=== PATIENT | male | born 1950 | race Caucasian/White ===

== ENCOUNTER → 2017-10-13 | Outpatient (CLI) | payer BC ==
--- NOTE | 2017-10-14 05:39 | PAP/PSG TECHNICIAN REPORT ---
[facility] Saxophone Player Polysomnogram Report Study name: None Report date: 10/14/2017 Study date: 10/13/2017 Referring Physician: DR. HUMA MCKENZIE Name: MARY JO RATLIFF Interpreting Physician: Kris Manjarrez M.D. Date of : 1950 Saxophone Player: Xiomara Sr, PSGT. Sex: Male Age: 67 StudyType: PSG Weight: 190 lbs Height: 67 years, Height 5' 11" Neck Circum:16 inches BMI: 26.5 Medications: Azelex 20 %, Clindamycin 1%, Mirtazapine 30 mg, Nexium 40 mg, Simvastatin. Patient History 67-year-old male in room 7, presents to the sleep lab to see if his oral appliance from Dr. Hdz is working for him. He is told by his that he is snoring, and she has witnessed apnea. He was diagnosed with mild sleep apnea in 2011 with an AHI of 7.4. with Intermittent transient nocturnal hypoxemia. Ess = 0 Neck = 16 inches Parameters Monitored NPSG: E1-M2, E2-M1, Fp1-M2, Fp2-M1, F3-M2, F4-M2, F4-M1, C3-M2, C4-M2, C4-M1, O1-M2, O2-M2, O2-M1, T3-M2, T4-M1, P3-M2, P4-M1, CHIN1, CHIN2, HR, EKG, Legs, PFLOW, SNOR, FLOW, CFLOW, Tidal Volume, THOR, ABDO, SpO2, PLTH, CPRESS, ETCO2 Wave, ETCO2, pH Sleep Architecture Sleep Stages Time at Lights Off 10:00:54 PM STAGES Time (min.) TST (%) Time at Lights On 5:31:24 AM Wake 109.0 -- Total Recording Time (TRT) 451.50 min. N1 55.0 16 Total Sleep Period (TSP) 444.0 min. N2 241.0 71 Total Sleep Time (TST) 341.5min. N3 0.0 0 Awake Time 109.0 min. REM 45.5 13 Wake after Sleep Onset 102.5 min. Sleep Efficiency (SE) 76 % Sleep Onset Latency (RADHA) 6.5 min. Number of Stage 1 Shifts None Awakenings 16 Stage Changes 57 Number of REM periods 3 REM 45.5 13 REM Latency 320.5 min. NREM 296.0 87 Body Position Analysis Supine Right Left Side Prone Vertical Total Sleep Time (min.) 17.8 277.5 44.7 322.25 84.0 0.0 Total Sleep Time (%) 0% 81% 13% 94 5% N/A% Total Sleep Time REM (min.) 0.0 45.5 0.0 None 0.0 0.0 Total Sleep Time NREM (min.) 1.0 232.0 44.7 None 18.3 0.0 Intermittent Wake (min.) 16.8 18.3 8.2 None 65.7 0.0 Total Sleep Period (%) 3% None None None None None Arousals Myoclonus (PLM) * Events Count Index Events Count Index Spontaneous 27 5 Events Awake (PLMW) 4 2.2 Respiratory 1 0.2 Events Asleep w/ Arousal (PLMA) 2 0.4 PLM 2 0 Events Asleep w/o Arousal (PLMS) 123 21.6 Snoring 2 0 Total Asleep 125 22.0 Total 32 6 Total 129 17 Respiratory Analysis * CA OA MA CH H RERA Total Count 0 0 0 0 3 0 3 Index 0.0 0.0 0.0 0 0.5 0 0.5 Mean Duration 0.0 0.0 0.0 0.00 15.9 0.0 15.9 Longest Duration 0.0 0.0 0.0 0.00 0.0 0.0 21.3 Respiratory Event Summary Total Supine ~Supine Right Left Prone REM NREM Apneas Count 0 0 0 0 0 0 0 0 Index 0.0 0 0 0.0 0.0 0 0 0 Hypopneas (4% Desat) Count 3 0 3 2 0 1 0 3 Index 0.5 0.0 1 0.4 0.0 3.3 0.0 0.6 Apneas & All Hypopneas Count 3 0 3 2 0 1 0 3 Index 0.5 0 1 0 0 3 0.0 0.6 Respiratory Events (Senior Manager Mmcoe+All Hyp+RERA) Count 3 0 3 2 0 1 0 3 Index 0.5 0 1 0.4 0.0 3.3 0.0 0.6 Respiratory Related Arousal Count 1 0 1 0 0 1 0 1 Index 0.2 0 0 0 0 3 0 0 Snoring Analysis Supine Right Left Prone REM NREM Total Snore duration 3.4 min Snores count 1 67 21 22 19 92 111 Snore mean duration 1.8 Sec Snores index 60 14 28 72 25.1 18.6 19.5 TST with snoring (%) 1.0% Desaturation Event Summary: Minimum %SpO2 Event Count Mean/Min/Max Duration(sec.) Desaturation Index % Time In Bed > 90 3 44.8 / 38.3 / 49.8 0.4 99.4 86 - 90 0 N/A 0.0 0.6 81 - 85 0 N/A 0.0 0.0 76 - 80 0 N/A 0.0 0.0 71 - 75 0 N/A 0.0 0.0 66 - 70 0 N/A 0.0 0.0 61 - 65 0 N/A 0.0 0.0 56 - 60 0 N/A 0.0 0.0 51 - 55 0 N/A 0.0 0.0 < 50 0 N/A 0.0 0.0 Total REM NREM Awake <50% 0.0 min. 0.0 min. 0.0 min. 0.0 min. 51 - 60% 0.0 min. 0.0 min. 0.0 min. 0.0 min. 61 - 70% 0.0 min. 0.0 min. 0.0 min. 0.0 min. 71 - 80% 0.0 min. 0.0 min. 0.0 min. 0.0 min. 81 - 90% 2.6 min. 0.0 min. 0.0 min. 2.6 min. 91 - 100% 446.4 min. 44.7 min. 295.6 min. 106.1 min. Average 93 93 93 93 Minimum SpO2 88 90 91 88 Desaturation Event Index 0.4 0.0 0.6 0.0 # Desat. Events below 89% N/A N/A N/A N/A Time(%) with Saturation below 89% 0.0 0.0 0.0 0.0 Time(min.) with Saturation below 89% 0.1 0.0 0.0 0.1 Time (mins) REM (mins) NREM (mins) % of TST SpO2 Below 90% N/A N/A NN/A 0.0 SpO2 Below 88% 0 0 0 0 Heart Rate Analysis Min (bpm) Max (bpm) Average (bpm) Awake 39 84 55 NREM 45 70 50 REM 43 69 52 Overall 43 70 50 Supplemental O2 Values Minimum O2 level: None Value Start Time End Time Saxophone Player Comments . PSG Study slept in the right, left, and supine and prone positions. No cardiac arrhythmia or PLM's noted. No bruxism noted. Snoring was noted and scored as a 2 on a scale of 1 through 5. (0=no snoring, 5=snoring loud enough to be heard through a closed door or down the [address] way) awoke to use the restroom zero times during the night. Mr. Ratliff stated,I did not sleep as well as I do when I am in my own bed. The final report will be interpreted and signed by a sleep physician. The completed physician report will then be placed in the patient medical record Therapy (cm H2O) 0 TIB (min.) 450.5 TST (min.) 341.5 Sleep Onset (min.) 6.5 REM Onset From Sleep (min.) 320.5 Sleep Efficiency % 76 Wakefulness (%) 24 Wakefulness (min.) 109.0 NREM 1 (%) 16 NREM 1 (min.) 55.0 NREM 2 (%) 71 NREM 2 (min.) 241.0 NREM 3 (%) 0 NREM 3 (min.) 0.0 REM (%) 13 REM (min.) 45.5 # Arousals 32 Arousal Index 6 # Snore 111 Snore Index 19.5 AHI 0.5 AHI Supine 0 AHI Non-Supine 1 NREM AHI 0.6 REM AHI 0.0 RDI 0.5 # Obstructive Apnea 0 # Central Apnea 0 # Mixed Apnea 0 # Hypopneas 3 RERAs 0 Total Respiratory Events 4 Time Below SpO2 89% (min.) 0.0 Mean NREM SpO2 (%) 93 Mean REM SpO2 (%) 93 Mean Sleep SpO2 (%) 93 Min NREM SpO2 (%) 91 Min REM SpO2 (%) 90 Position Supine (min.) 17.8 Position Non-supine (min.) 340.5 LM Index Sleep 22.0 LM Index NREM 24.5 LM Index REM 5.3 Mean Heart Rate (bpm) 50 Min Heart Rate (bpm) 43
--- NOTE | 2017-10-15 09:44 | POLYSOMNOGRAPH REPORT ---
CLINICAL DATA: A 67-year-old male with BMI of 26.5, referred by Dr. Triplett, Dr. Hdz and Annie Hunt PA-C. The patient has sleep apnea and has an oral appliance. He had mild sleep apnea on his initial PSG. He is here to determine the effectiveness of his oral appliance. He has been told by his that he has snoring and apneic episodes. SLEEP ARCHITECTURE: Total sleep period was 444 minutes. Total sleep time was 341.5 minutes divided between 296 minutes of non-REM sleep and 45.5 minutes of REM sleep. Sleep latency was 6.5 minutes. REM latency was delayed at 320.5 minutes. Sleep efficiency was 76%. Wake after sleep onset was 102.5 minutes. Sleep consisted of stage N1 16%, stage N2 71% and REM 13%. AROUSAL DATA: 32 arousals were recorded for an index of 6 per hour. 27 were spontaneous. PERIODIC LIMB MOVEMENT DATA: Mildly elevated limb movements during sleep were noted. There were 125 limb movements during sleep noted for an index of 22 per hour with arousal index of 0.4 per hour. RESPIRATORY DATA: There was no evidence of clinically significant sleep apnea seen. The AHI was 0.5. There were 3 hypopneic episodes. The mean duration of hypopnea was 16 seconds. OXIMETRY DATA: No hypoxemia was seen. Oxygen josiah was 91%. Mean saturation 93%. EKG: Heart rates ranged from 45-70 beats per minute. No arrhythmias were noted. REGIONAL COMMERCIAL SALES MANAGER'S COMMENTS: The patient slept in the right, left and supine positions. Snoring was mild, rated 2 on a scale of 1 through 5. The patient did use his oral appliance during this study. IMPRESSION: No evidence of clinically significant sleep apnea/hypopnea or nocturnal hypoxemia. The patient does appear to be adequately treated with his oral appliance with an AHI of 0.5 and no hypoxemia. RECOMMENDATIONS: The patient should continue to use his oral appliance. [facility]
== END | disposition home or self-care (01) ==
LOC: C.NEUR 21:00
PROVIDERS: ATTEND Family Medicine
DX: G47.30 Sleep apnea, unspecified (principal)

== ENCOUNTER 2024-10-17 21:01 | Observation (INO) ==
--- NOTE | 2024-10-17 21:27 | Emergency Department Note ---
Impression & Plan CONOR (acute kidney injury), Gastroenteritis due to norovirus, Acute dehydration, Vomiting and diarrhea ED Provider Note HISTORY OF PRESENT ILLNESS: Patient is a 74-year-old male presenting with diarrhea and vomiting. Patient was just discharged by myself in the emergency department after being diagnosed with norovirus. Patient wanted to try to go home and had tolerated oral intake in the emergency department, but when getting out to his car he had an episode of vomiting. ROS: as above PHYSICAL EXAM: Constitutional: Patient appears in no acute distress. HENT: Head: Normocephalic and atraumatic. Eyes: EOMI, PERRL Mouth/Throat: Mucous membranes moist. Neck: Trachea midline. Neck supple. Cardiovascular: Tachycardic with regular rhythm. No murmurs, rubs or gallops. Intact distal pulses. Pulmonary/Chest: No respiratory distress. Breath sounds clear and equal bilaterally. No wheezes or rales. Abdominal: Abdomen soft, no tenderness, rebound or guarding. Musculoskeletal: No edema, tenderness or deformity noted. Skin: Warm and dry. No rash, erythema, pallor or cyanosis Psychiatric: Appropriate mood and affect for situation. Neurological: Alert and keenly responsive. CN II-XII grossly intact, moving all extremities equally and fully. MDM: - Vitals signs showed tachycardia - History obtained via patient. History as above. - Chronic conditions affecting care: vasovagal syndrome - Differential diagnoses include, but are not limited to: Viral syndrome; electrolyte abnormality; diverticulitis; colitis; appendicitis - Order placed for continuous cardiac monitoring. At this time, monitor showed rate of 105 bpm with normal sinus rhythm, per my interpretation. - External medical records reviewed. - Patient is workup from earlier today was reviewed by myself. Please see previous note. He did have an CONOR and admission was offered to the patient, but he tolerated oral intake and wanted to try to go home. He was having no vomiting symptoms so antiemetics are not prescribed to him. However, he went out to the parking lot and had episode of vomiting. He came back for admission for hydration in the setting of gastroenteritis with norovirus. - Discussion was had with sample case porter about patient's case and need for admission - Hospitalist consulted for admission - Patient admitted to [facility] Hospitalist service for further evaluation and management. ASSESSMENT AND PLAN: Diagnosis: CONOR; acute dehydration; vomiting and diarrhea; gastroenteritis due to norovirus Plan: Admit Past Med/Surg History Problem List (Updated 10/17/24 @ 22:39 by Lisa Lozoya PA-C) Renal insufficiency Vomiting and diarrhea (Acute) Acute dehydration (Acute) Gastroenteritis due to norovirus (Acute) CONOR (acute kidney injury) (Acute) CONOR (acute kidney injury) (Acute) Gastroenteritis due to norovirus (Acute) Diarrhea (Acute) Medical History (Updated 10/17/24 @ 22:39 by Lisa Lozoya PA-C) Pre-diabetes Vasovagal syncope Family History (Updated 07/15/18 @ 12:33 by Laura Turpin) Father Pacemaker Social History Smoking Status: Never smoker Preferred Language: Jordanian Feels Safe at Home: Yes Allergies Allergies Allergy/AdvReac Type Severity Reaction Status Date / Time Sulfa (Sulfonamide Allergy Mild Unknown Verified 10/17/24 21:38 Antibiotics) Home Meds Home Medications Medication Instructions Recorded Confirmed atorvastatin 10 mg tablet (Lipitor) 10 mg PO HS 07/15/18 10/17/24 azelaic acid 20 % topical cream 1 applic topical BID 07/15/18 10/17/24 clindamycin phosphate 1 % topical 1 applic topical DAILY 07/15/18 10/17/24 solution coenzyme Q10 100 mg capsule 200 mg PO DAILY 07/15/18 10/17/24 (CoQ-10) esomeprazole magnesium 40 mg 40 mg PO QAM 07/15/18 10/17/24 capsule,delayed release (Nexium) mirtazapine 30 mg tablet 30 mg PO HS 07/15/18 10/17/24 multivitamin 1 tab PO DAILY 07/15/18 10/17/24 omega 1-fmt-ukn-fish oil 1,000 mg 1 cap PO BID 07/15/18 10/17/24 (120 mg-180 mg) capsule (Fish Oil) carboxymethyl 0.5 %-glycerin 1 1 drp OPB BID 10/17/24 10/17/24 %-polysorb 80 0.5 %-PF eye dropperette (Refresh Optive Lazaro-3 (PF)) meloxicam 15 mg tablet 15 mg PO QAM PRN Pain 10/17/24 10/17/24 turmeric 400 mg capsule 400 mg PO DAILY 10/17/24 10/17/24 Results & Data (ED) Vital Signs Vital Signs - 24 hr 03/25/25 21:05 Temperature 36.9 C Temperature Source Temporal Artery Scan Pulse Rate 107 H Pulse Rhythm Regular Pulse Strength Normal Respiratory Rate 18 Respiratory Effort / Characteristics Non-Labored Spontaneous Respiratory Depth Normal Respiratory Pattern Regular Blood Pressure 118/82 Blood Pressure Mean 94 Blood Pressure Position Sitting Pulse Oximetry 99 Oxygen Delivery Method Room Air Sepsis Recent Fever Within 48 Hours No Sepsis New/Unexplained Change in Mental Status N/A Sepsis Action Taken by Nursing No Action Required Administered Medications Discontinued Medications Sodium Chloride (Nss) 1,000 mls @ 999 mls/hr IV .Q1H1M ONE Stop: 10/17/24 22:24 Last Infusion: 10/17/24 22:38 Dose: Infused Documented By: Admin: 10/17/24 21:34 Dose: 999 mls/hr Documented By: DAKOTA Discharge Plan Visit Data Chief Complaint: Vomiting Stated Complaint: N/V/D ED Provider: Chary Arce Discharge Problem: CONOR (acute kidney injury), Gastroenteritis due to norovirus, Acute dehydration, Vomiting and diarrhea Forms Stand Alone Forms: [facility] Prescriptions Prescriptions: No Action multivitamin Tablet 1 tab PO DAILY atorvastatin [Lipitor] 10 mg Tablet 10 mg PO HS azelaic acid 20 % Cream 1 applic TOPICAL BID mirtazapine 30 mg Tablet 30 mg PO HS esomeprazole magnesium [Nexium] 40 mg Capsule,Delayed Release(Dr/Ec) 40 mg PO QAM clindamycin phosphate 1 % Solution 1 applic TOPICAL DAILY coenzyme Q10 [CoQ-10] 100 mg Capsule 200 mg PO DAILY omega 6-zag-jps-fish oil [Fish Oil] 1,000 mg (120 mg-180 mg) Capsule 1 cap PO BID meloxicam 15 mg tablet 15 mg PO QAM PRN (Reason: Pain) Refresh Optive Lazaro-3 (PF) 0.5-1-0.5 % Dropperette 1 drp OPB BID turmeric 400 mg Capsule 400 mg PO DAILY Referrals Referrals: Bola Triplett [Primary Care Provider] -
[2024-10-17] MEDS: SODIUM CHLORIDE 0.9% 1,000 ML IV ONE (21:34)
--- NOTE | 2024-10-17 22:04 | History & Physical Report ---
Date of Service October 17, 2024 Assessment & Plan (1) Gastroenteritis due to norovirus: (2) Acute dehydration: (3) Renal insufficiency: Plan Patient is a 74-year-old male with past medical history of sergei and depression. He presented to ED 10/17 due to abdominal pain and diarrhea and was found to have norovirus. Patient was discharged home on had an episode of vomiting in the parking lot so he returned for admission for IV fluids. Patient was also found to have mild renal insufficiency with creatinine increased from 1.33 to 1.72. #norovirus stool culture positive for norovirus in ED 10/[address] showed enteritis electrolytes stable, mild renal insufficiency as below No leukocytosis 1L NSS in ED, LR at 80 mL/hour x 1 bag overnight Zofran as needed for nausea; patient would like Zofran p.o. on discharge clear liquids, advance diet as tolerated to low fiber IV Tylenol as needed for abdominal pain hold all nonessential p.o. medications #Renal insufficiency/dehydration creatinine increased from 1.33 to 1.72 Suspect 2/2/dehydration with above possible component of CKD as UA showed 1+ protein, >20 hyaline cast - most recent BMP from 2018 electrolytes stable/mild hyponatremia - mag 1.9, K+ 4.0, Na 134 IV fluids as above BMP and mag in a.m. Chronic stable diagnoses: depression - continue mirtazapine HLD - hold atorvastatin until able to tolerate po intake SERGEI - control with dental appliance at home, no cpap/bipap VTE ppx: SCDs, low risk and obs status Diet: clears, advance as tolerated low fiber diet Dispo: med surg anticipate discharge home 10/18 after able to tolerate p.o. intake if renal function improved. Zofran p.o. on discharge. Admission and Anticipated Discharge Date Admission Date: 10/17/24 History of Present Illness Chief Complaint: vomiting Primary Care Provider: Bola Triplett Patient is a 74-year-old male with past medical history of SERGEI and depression. He presented to ED 10/17 due to abdominal pain and diarrhea and was found to have norovirus. Patient was discharged home on had an episode of vomiting in the parking lot so he returned for admission for IV fluids. Patient was also found to have mild renal insufficiency with creatinine increased from 1.33 to 1.72. Patient seen at bedside with his present. He was concerned about being at home after returning to the ED with nausea, vomiting, and diarrhea. He has not had an episode of vomiting since arrival to the ED. He feels dehydrated and with CONOR is requiring IV fluids. He did have episodes of dizziness earlier today at home in which she had to keep laying down on the bathroom floor. He denies current dizziness. His abdominal pain is improving. He has drank Pedialyte and water today but both came out about an hour later through his stool. He denies any sick contacts, is unsure of where he picked this up. He denies any hematemesis or bright red blood in stool. He denies any chest pain or shortness of breath. He would like to still take his mirtazapine tonight but is okay with holding all other p.o. medications. Will trial clear liquids and advance diet as tolerated. He wishes to be full code. Allergies Allergy/AdvReac Type Severity Reaction Status Date / Time Sulfa (Sulfonamide Allergy Mild Unknown Verified 10/17/24 21:38 Antibiotics) Home Medications Medication Instructions Recorded Confirmed Type atorvastatin 10 mg tablet (Lipitor) 10 mg PO HS 07/15/18 10/17/24 History azelaic acid 20 % topical cream 1 applic topical BID 07/15/18 10/17/24 History clindamycin phosphate 1 % topical 1 applic topical DAILY 07/15/18 10/17/24 History solution coenzyme Q10 100 mg capsule 200 mg PO DAILY 07/15/18 10/17/24 History (CoQ-10) esomeprazole magnesium 40 mg 40 mg PO QAM 07/15/18 10/17/24 History capsule,delayed release (Nexium) mirtazapine 30 mg tablet 30 mg PO HS 07/15/18 10/17/24 History multivitamin 1 tab PO DAILY 07/15/18 10/17/24 History omega 1-naj-nbt-fish oil 1,000 mg 1 cap PO BID 07/15/18 10/17/24 History (120 mg-180 mg) capsule (Fish Oil) carboxymethyl 0.5 %-glycerin 1 1 drp OPB BID 10/17/24 10/17/24 History %-polysorb 80 0.5 %-PF eye dropperette (Refresh Optive Lazaro-3 (PF)) meloxicam 15 mg tablet 15 mg PO QAM PRN Pain 10/17/24 10/17/24 History turmeric 400 mg capsule 400 mg PO DAILY 10/17/24 10/17/24 History ondansetron 4 mg disintegrating 4 mg PO Q6H PRN nausea and 10/18/24 Rx tablet vomiting #10 tabs Past Med/Surg History Problem List (Updated 10/17/24 @ 22:39 by Lisa Lozoya PA-C) Renal insufficiency Vomiting and diarrhea (Acute) Acute dehydration (Acute) Gastroenteritis due to norovirus (Acute) CONOR (acute kidney injury) (Acute) CONOR (acute kidney injury) (Acute) Gastroenteritis due to norovirus (Acute) Diarrhea (Acute) Medical History (Updated 10/17/24 @ 22:39 by Lisa Lozoya PA-C) Pre-diabetes Vasovagal syncope Family History (Updated 07/15/18 @ 12:33 by Laura Turpin) Father Pacemaker Social History Smoking Status: Never smoker Hx Alcohol Use: No Hx Substance Use: No Preferred Language: Georgian Communication Ability: Effective Surgical Supplies Sterilizer Required: No Beliefs That Will Affect Care: None Current Living Situation: Spouse Feels Safe at Home: Yes Safety Concerns: Feels Safe At This Time Assistive Devices: None Review of Systems Review of Systems: see HPI Physical Exam Physical Exam: The patient is awake, alert and oriented 3, well developed and well nourished, normocephalic and atraumatic, in no acute distress. Non-toxic appearing. HEENT- EOMI, mucous membranes dry. Hearing grossly intact. Heart-normal S1 and S2. No murmurs, rubs or gallops. Lungs-clear bilaterally, no respiratory distress, no accessory muscle use. Abdomen-normal bowel sounds and soft. No ascites noted. Non-tender. Extremities- no clubbing, cyanosis, or edema. Rheumatologic-normal range of motion. Psychiatric-normal affect. Results & Data Results & Data Vital Signs (Past 12 Hours) Vital Signs Temp Pulse Resp BP Pulse Ox O2 Del Method 10/17/24 21:05 36.9 C 107 H 18 118/82 99 Room Air Laboratory Results Reviewed CBC, CMP, magnesium, UA, stool BioFire, respiratory bio fire Diagnostic Findings reviewed AP CT Medications Administered ED1L NSS bolus AdmissionLR at 80 mL/hour ECG Additional Comments: NSR rate 79 QTc 428 Code Status & VTE Plan Code Status full VTE Prophylaxis Plan VTE Prophylaxis will be ordered: Yes Supervising Physician Co-Signing Physician Notes Attending addendum: I have physically seen this patient, have supervised the ANNALEE's activities, and agree with the H&P unless as otherwise noted. Assessment and Plan: The patient is a 74-year-old male with a past medical history including atorvastatin, hyperlipidemia, and depression. He presents to the emergency department with 2 to abdominal pain and diarrhea, with stool PCR positive for norovirus, and BioFire respiratory test negative. He is referred for evaluation for admission and treatment to the hospitalist service for acute kidney injury superimposed on CKD, secondary to enteritis due to norovirus. #Enteritis secondary to norovirus- CT with enteritis, no sign of bowel obstruction Zofran 4 mg IV every 6 hours as needed Clear liquids, advance diet as tolerated Acetaminophen 1 g IV every 8 hours as needed for mild pain or fever Contact precautions Acute kidney injury superimposed on CKD- Creatinine 1.72, with base 1.33 Secondary to dehydration associated with norovirus infection Repeat laboratories in a.m. Chronic stable medical conditions: Depression-continue mirtazapine Hyperlipidemia temporarily hold atorvastatin SERGEI-continue dental appliance has not found Remaining orders and notations as noted PG Care Time/CCT Total # of Minutes Spent Total Time Spent with Patient: Total time spent is greater than 50% in coordination of care (as documented) at patient's floor/unit and/or counseling patient: Coding Level of Care Code 76354 INT INP/OBS CARE 3/75MIN Diagnoses Gastroenteritis due to norovirus A08.11 Acute dehydration E86.0 Renal insufficiency N28.9
[2024-10-17] MEDS: LACTATED RINGER'S 1,000 ML IV SCH (22:54)
[2024-10-18] MEDS ORDERED: ACETAMINOPHEN 1,000 MG/100 ML VIAL IV PRN (01:05)
[2024-10-18] MEDS: MIRTAZAPINE TAB 15 MG TAB PO SCH (01:59)
[2024-10-18 07:06] VITALS: BP 123/68; PULSE 61; RESP 16; TEMP 99; O2SAT 97
[2024-10-18 10:03] LABS: Calcium 8.2 mg/dl (8.6-10.3); Magnesium 1.9 mg/dl (1.7-2.4); Potassium 3.6 mmol/L (3.5-5.1)
[2024-10-18 10:09] LABS: BUN Creatinine Ratio 19.2 (10-20); Creatinine Clr Calc Pharmacy 53.5 ml/min
--- NOTE | 2024-10-18 11:33 | Discharge Summary ---
Discharge Summary Date of Service October 18, 2024 Principal Dx & Hospital Course #1 = Principal Diagnosis (1) Gastroenteritis due to norovirus: (2) Acute dehydration: (3) Renal insufficiency: (4) CONOR (acute kidney injury): Plan #Norovirus/CONOR Patient is a 74-year-old male with past medical history of SERGEI and depression. He presented to ED 10/17 due to abdominal pain and diarrhea and was found to have norovirus. Patient was discharged home on had an episode of vomiting in the parking lot so he returned for admission for IV fluids. Patient was also found to have mild renal insufficiency with creatinine increased from 1.[address] A/P showed enteritis. Stools have slowed and started to form, tolerating PO intake. Received IVFs and Cr and returned back to normal. Discharge to home with and prn zofran rx. No changes to home medications. Admission HPI Per Admitting Provider Patient is a 74-year-old male with past medical history of SERGEI and depression. He presented to ED 10/17 due to abdominal pain and diarrhea and was found to have norovirus. Patient was discharged home on had an episode of vomiting in the parking lot so he returned for admission for IV fluids. Patient was also found to have mild renal insufficiency with creatinine increased from 1.33 to 1.72. Patient seen at bedside with his present. He was concerned about being at home after returning to the ED with nausea, vomiting, and diarrhea. He has not had an episode of vomiting since arrival to the ED. He feels dehydrated and wi th CONOR is requiring IV fluids. He did have episodes of dizziness earlier today at home in which she had to keep laying down on the bathroom floor. He denies current dizziness. His abdominal pain is improving. He has drank Pedialyte and water today but both came out about an hour later through his stool. He denies any sick contacts, is unsure of where he picked this up. He denies any hemateme sis or bright red blood in stool. He denies any chest pain or shortness of breath. He would like to still take his mirtazapine tonight but is okay with holding all other p.o. medications. Will trial clear liquids and advance diet as tolerated. He wishes to be full code. Discharge Exam General: NAD, VS as above, ambulating independently in the room, appears well Resp: normal respiratory effort, lungs clear to auscultation CV: RRR, no murmur, Abd: normal bowel sounds, non tender, soft Extremities: Moves all extremities, no edema Neuro: A&O x3, Discharge Plan Discharge Items Patient Disposition: Home - Self-Care Reason For Visit: NOROVIRUS, RENAL INSUFFICIENCY Discharge Diagnosis: Norovirus Activity: Resume your previous activity Weightbearing: Full weightbearing Non-emergency contact: Primary Care Provider Call non-emergency contact if: you have any medication questions, your symptoms worsen, your pain is concerning for you and your temperature is above 101 Follow-up/Referrals: Bola Triplett [Primary Care Provider] - 10/24/24 11:20 am (Please arrive 15 mins early for appointment) Diet: Regular Addtl Attending Provider Instructions: Mr. Ratliff, You were hospitalized after having nausea, diarrhea, and abdominal pain associated with norovirus. Thankfully, you have improved with IV fluids and Zofran. There was also concerns about elevations to your kidney function. This was likely secondary to the diarrhea, the repeat labs this morning showed that your kidney function is back to normal. Continue bland diet at home until your stools return to normal. Make sure you are staying hydrated at home. Electrolyte drinks like gatorade and powerade can be helpful. I called [facility] and they did not have a prescription for zofran so I have sent that in for you. Take as needed for nausea and vomititng. No changes yo your home medications. Activity: You can do normal everyday activities as your body allows. Take rest breaks if you feel tired. Do not overexert. Stop activity if you have pain, shortness of breath or feel dizzy. Follow-up appointments: Make an appointment with your primary care physician within one week of discharge. A copy of this summary will be sent to them. Every time you see your primary care physician, or any other doctor, bring your medication list, and a list of questions. CONTACT YOUR PRIMARY CARE PROVIDER if you experience any of the following: Shortness of breath or difficulty breathing Fevers or chills Feeling tired with normal activity or experiencing dizziness or fainting Difficulty following your treatment plan, or difficulty taking medications CALL 911 OR GO TO THE EMERGENCY DEPARTMENT if you experience any of the following: Severe abdominal pain or nausea/vomiting Severe chest pain, or chest pain that radiates (moves) to your jaw or arm Sudden, severe shortness of breath or difficulty breathing Thank you for allowing us to participate in your care. Pending Studies at Discharge: No Stand-Alone Forms: My [facility], Smoking Cessation Medications and DC Order Prescriptions: New ondansetron 4 mg tablet,disintegrating 4 mg PO Q6H PRN (Reason: nausea and vomiting) Qty: 10 0RF Continued multivitamin Tablet 1 tab PO DAILY atorvastatin [Lipitor] 10 mg Tablet 10 mg PO HS azelaic acid 20 % Cream 1 applic TOPICAL BID mirtazapine 30 mg Tablet 30 mg PO HS esomeprazole magnesium [Nexium] 40 mg Capsule,Delayed Release(Dr/Ec) 40 mg PO QAM clindamycin phosphate 1 % Solution 1 applic TOPICAL DAILY coenzyme Q10 [CoQ-10] 100 mg Capsule 200 mg PO DAILY omega 3-qhj-fvt-fish oil [Fish Oil] 1,000 mg (120 mg-180 mg) Capsule 1 cap PO BID meloxicam 15 mg tablet 15 mg PO QAM PRN (Reason: Pain) Refresh Optive Lazaro-3 (PF) 0.5-1-0.5 % Dropperette 1 drp OPB BID turmeric 400 mg Capsule 400 mg PO DAILY Discharge Orders: Discharge Order (Routine); Ordered 10/18/24 Ordered By: Migdalia Pittman/Other Patient Handouts: Understanding Norovirus Admission Data Admit Date/Time: 10/17/24 22:29 Attending Provider: Aron Cartagena Admit Provider: Bubba Amin Primary Care Provider: Bola Triplett Other Providers: Bubba Amin Other Interventions: Discharge Summary Assessment (RN) Last Done: 10/18/24 11:50 Hospital Stay Data Consultations 10/17/24 21:29 ED Decision to Admit Stat Pending Results Patient Have Any Pending Studies at Discharge: No Discharge Instructions Given to Patient (Per Discharging Provider) Mr. Ratliff, You were hospitalized after having nausea, diarrhea, and abdominal pain associated with norovirus. Thankfully, you have improved with IV fluids and Zofran. There was also concerns about elevations to your kidney function. This was likely secondary to the diarrhea, the repeat labs this morning showed that your kidney function is back to normal. Continue bland diet at home until your stools return to normal. Make sure you are staying hydrated at home. Electrolyte drinks like gatorade and powerade can be helpful. I called [facility] and they did not have a prescription for zofran so I have sent that in for you. Take as needed for nausea and vomititng. No changes yo your home medications. Activity: You can do normal everyday activities as your body allows. Take rest breaks if you feel tired. Do not overexert. Stop activity if you have pain, shortness of breath or feel dizzy. Follow-up appointments: Make an appointment with your primary care physician within one week of discharge. A copy of this summary will be sent to them. Every time you see your primary care physician, or any other doctor, bring your medication list, and a list of questions. CONTACT YOUR PRIMARY CARE PROVIDER if you experience any of the following: Shortness of breath or difficulty breathing Fevers or chills Feeling tired with normal activity or experiencing dizziness or fainting Difficulty following your treatment plan, or difficulty taking medications CALL 911 OR GO TO THE EMERGENCY DEPARTMENT if you experience any of the following: Severe abdominal pain or nausea/vomiting Severe chest pain, or chest pain that radiates (moves) to your jaw or arm Sudden, severe shortness of breath or difficulty breathing Thank you for allowing us to participate in your care. Supervising Physician Co-Signing Physician Notes Attending Attestation & Discharge Note: Chart reviewed in detail, care plan d/w PÉREZ Roche. I agree w/ the clinton components of her documentation with the following addition -- * acute kidney injury Of note - I did not perform a bedside visit or physical exam on day of discharge. 74yo male with history of SERGEI and depression who presented with nausea, emesis, diarrhea, and abd pain. Tested + for norovirus on [employer] stool testing. Given IV fluids and supportive care while here. Resumed on a diet and tolerated such. Vitals and labs were stable upon discharge home. Mild CONOR resolved with IV fluids. Peak Cr 1.7, falling to 1.2 at discharge. Aron Cartagena MD Total Time Total Time Spent Total Time Spent (In Minutes): Time spent day of discharge 36 minutes including direct patient care, medication reconciliation, documentation, review of labs and images, and coordination of care. Coding Level of Care Code 91211 INP/OBS DISCH >30 MIN Diagnoses Gastroenteritis due to norovirus A08.11 Acute dehydration E86.0 Renal insufficiency N28.9 CONOR (acute kidney injury) N17.9
[2024-10-18] MEDS: ONDANSETRON INJ 2 MG/ML 2 ML VIAL IV PRN (11:43)
--- NOTE | 2024-10-18 19:38 | Billing Data ---
Date of Service October 18, 2024 Coding Level of Care Code 92467 INT INP/OBS CARE
== END 2024-10-18 12:52 | disposition home or self-care (01) ==
LOC: ED 21:01 → 3N 21:01 → SUATTDRO 22:29 → 3N 10-18 00:05